=== PATIENT | female | born 1980 | race Caucasian/White ===

== ENCOUNTER 2018-02-09 00:35 | Inpatient (IN) | payer BC, OTHER ==
[2018-02-09] MEDS ORDERED: Sodium Chloride 0.9% 10 ML Syringe FLUSH PRN (00:49)
[2018-02-09] MEDS ORDERED: Ondansetron 4 MG/2 ML SDV IVPUSH ONE (00:50)
--- NOTE | 2018-02-09 00:56 | EDM.PDOC ---
ED HPI GENERAL MEDICAL PROBLEM - General Chief Complaint: Abdominal Pain Stated Complaint: DIZZY Time Seen by Provider: 02/09/18 00:45 Source of Information: Reports: Patient, Family History Limitations: Reports: No Limitations - History of Present Illness INITIAL COMMENTS - FREE TEXT/NARRATIVE: Nicol comes into [facility] ED this early am with progressive upper abdominal pain since 9 pm associated with multiple episodes of vomiting, and recent diarrhea over the past few hoiurs. There is also some chronic LLQ pain associated with a PMH of endometriosis. She is unaware of any known exposure, and denies fever, chills, sweats, BRB in the emesis or stools, voiding sxs, or back pain. She has tried no meds. Of interest is a diagnosis of C diff enterocolitis November 2016 , managed with Flagyl po and eventually Vancomycin. A subsequent GI workup including EGD and colonoscopy in May 2017 noted IBS without findings for C diff. Abdomen Pain Score (Numeric/FACES): 9 - Related Data Allergies Allergy/AdvReac Type Severity Reaction Status Date / Time venlafaxine HCl Allergy Disorientat Verified 09/06/13 14:35 [From Effexor] ion Home Meds: Home Meds Ibuprofen [Motrin] 800 mg PO QID PRN 09/06/13 [History] Ondansetron HCl [Zofran] 4 mg PO Q8H PRN #10 ml 09/06/13 [Rx] Simvastatin 10 mg PO DAILY 09/06/13 [History] Ascorbate Calcium [Vitamin C] 500 mg PO DAILY 02/09/18 [History] Bacillus Coagulans [Digestive Advantage] 1 each PO DAILY 02/09/18 [History] Cetirizine [ZyrTEC] 10 mg PO BEDTIME 02/09/18 [History] Cholecalciferol (Vitamin D3) [Vitamin D3] 3,000 unit PO DAILY 02/09/18 [History] Lansoprazole [Prevacid] 30 mg DAILY 02/09/18 [History] Levonorgestrel-Ethin Estradiol [Falmina-28 Tablet] 1 tab DAILY 02/09/18 [History ] Multivitamin [Multivitamins] 1 each PO DAILY 02/09/18 [History] [place]-3 Fatty Acids/Fish Oil [Fish Oil 1,200 mg Softgel] 1 cap DAILY 02/09/18 [ History] PARoxetine HCl [Paroxetine Cr] 25 mg BEDTIME 02/09/18 [History] Vitamin B Complex with C [Super B Complex With C] 1 cap PO DAILY 02/09/18 [ History] Past Medical History Cardiovascular History: Reports: High Cholesterol Gastrointestinal History: Reports: GERD, Irritable Bowel Syndrome [employer] History: Reports: Endometriosis Social & Family History - Tobacco Use Years of Tobacco use: 5 Used Tobacco, but Quit: Yes Month/Year Tobacco Last Used: February 2013 ED ROS GENERAL - Review of Systems Review Of Systems: See Below Constitutional: Reports: Malaise, Decreased Appetite HEENT: Reports: No Symptoms Respiratory: Reports: No Symptoms Cardiovascular: Reports: No Symptoms Endocrine: Reports: No Symptoms GI/Abdominal: Reports: Abdominal Pain, Diarrhea, Decreased Appetite, Nausea, Vomiting : Reports: No Symptoms Musculoskeletal: Reports: No Symptoms Skin: Reports: No Symptoms Neurological: Reports: Headache Psychiatric: Reports: No Symptoms Hematologic/Lymphatic: Reports: No Symptoms Immunologic: Reports: No Symptoms ED EXAM, GI/ABD - Physical Exam Exam: See Below Exam Limited By: Physical Impairment General Appearance: Alert, WD/WN, Moderate Distress Eyes: Bilateral: Normal Appearance, EOMI Ears: Normal External Exam Nose: Normal Inspection Throat/Mouth: Normal Inspection, Normal Lips, Normal Teeth, Normal Gums, Normal Oropharynx, Normal Voice Head: Normocephalic Neck: Normal Inspection, Supple, Non-Tender Respiratory/Chest: Lungs Clear, Normal Breath Sounds, Chest Non-Tender Cardiovascular: Normal Peripheral Pulses, Regular Rate, Rhythm, No Edema, No JVD , No Murmur GI/Abdominal Exam: Soft, No Organomegaly, No Distention, No Mass, Guarding ( epigastric), Tender (epigastric) (Female) Exam: Deferred Rectal (Female) Exam: Deferred Back Exam: Normal Inspection Extremities: Normal Inspection, Normal Range of Motion Neurological: Alert, Oriented, CN II-XII Intact, Normal Cognition, No Motor/ Sensory Deficits Psychiatric: Normal Affect Skin Exam: Warm, Dry, Intact, Normal Color Lymphatic: No Adenopathy Course - Vital Signs Text/Narrative:: Following assessment at the [facility] ED, an IV was inserted into the LUE, and Nicol was administered 2L of NS, Zofran 8mg IV,and Toradol 30 mg IV with marked improvement in abdominal sxs. Subsequent labs noted: CBC noting Hgb 16.5 gm, WBC 21,600 w L shift, Plts 276,000; Na 135, K 5.8, BUN 13, Cr 1.7. Subsequent evaluation suggestive of intra-abdominal sepsis of GI tract. BCs x 2 obtained, fluid resuscitation continued, ZoSyn and Vancomycin administered, and Abd- Pelvic CT wo contrast ordered in advance of surgical consultation and admission to ICU. A Gracia cath was inserted to monitor urine outputs. At time of transfer , VSS w BP 113/68, VR 100. Patient and spouse informed of medical concerns. Last Recorded V/S: Last Vital Signs Temp 37.3 C 02/09/18 03:38 Pulse 78 02/09/18 00:35 Resp 18 02/09/18 03:38 BP 113/68 02/09/18 03:38 Pulse Ox 100 02/09/18 03:38 - Orders/Labs/Meds Orders: Active Orders 24 hr Category Date Time Status Patient Status Manage Transfer [TRANSFER] Routine ADT 02/09/18 04:04 Ordered Insert Gracia Catheter [Insert Urinary Catheter] [OM.PC] Care 02/09/18 04:00 Ordered Q24H Urinary Catheter Assessment [RC] QSHIFT Care 02/09/18 03:50 Active Abdomen Pelvis wo Cont [CT] Stat Exams 02/09/18 04:03 Ordered Chest 1V Frontal [CR] Stat Exams 02/09/18 03:30 Ordered CDIFF TOXIN A+B GROUP [OP] Stat Lab 02/09/18 04:03 Ordered CULTURE BLOOD [BC] Urgent Lab 02/09/18 02:55 Received CULTURE BLOOD [BC] Urgent Lab 02/09/18 03:03 Received UA W/MICROSCOPIC [URIN] Stat Lab 02/09/18 03:03 Ordered Diatrizoate Anabel/Diatrizoate Na [Gastrografin 37%] Med 02/09/18 04:00 Active 30 ml PO . DIRECTED Piperacillin/Tazobactam [Zosyn] 3.375 gm Med 02/09/18 03:45 Active Sodium Chloride 0.9% [Normal Saline] 50 ml IV Q6H Sodium Chloride 0.9% [Normal Saline] 1,000 ml Med 02/09/18 01:00 Active IV ASDIRECTED Sodium Chloride 0.9% [Normal Saline] 1,000 ml Med 02/09/18 03:15 Active IV ASDIRECTED Sodium Chloride 0.9% [Normal Saline] 2,000 ml Med 02/09/18 04:00 Active IV ASDIRECTED Sodium Chloride 0.9% [Saline Flush] Med 02/09/18 00:49 Active 10 ml FLUSH ASDIRECTED PRN Vancomycin 1,000 mg Med 02/09/18 04:00 Active Sodium Chloride 0.9% [Normal Saline] 250 ml IV Q12H Blood Culture x2 Reflex Set [OM.PC] Urgent Oth 02/09/18 02:45 Ordered Peripheral IV Insertion Adult [OM.PC] Routine Oth 02/09/18 00:49 Ordered Medication Orders Diatrizoate Meglum/Diatrizoate Sod (Gastrografin 37%) 30 ml PO . DIRECTED [facility] Sodium Chloride (Normal Saline) 1,000 mls @ 999 mls/hr IV ASDIRECTED JOHN Last Admin: 02/09/18 01:00 Dose: 999 mls/hr Sodium Chloride (Normal Saline) 1,000 mls @ 999 mls/hr IV ASDIRECTED JOHN Last Admin: 02/09/18 02:02 Dose: 999 mls/hr Piperacillin Sod/Tazobactam (Sod 3.375 gm/ Sodium Chloride) 50 mls @ 100 mls/ hr IV Q6H JOHN Vancomycin HCl 1,000 mg/ (Sodium Chloride) 250 mls @ 167 mls/hr IV Q12H JOHN Sodium Chloride (Normal Saline) 2,000 mls @ 500 mls/hr IV ASDIRECTED JOHN Last Admin: 02/09/18 03:50 Dose: 500 mls/hr Sodium Chloride (Saline Flush) 10 ml FLUSH ASDIRECTED PRN PRN Reason: Keep Vein Open Labs: Laboratory Tests 02/09/18 02/09/18 02/09/18 Range/Units 01:05 01:05 02:55 WBC 21.6 H 20.9 H (4.5-12.0) X10-3/uL RBC 5.30 H 4.91 (3.23-5.20) x10(6)uL Hgb 16.5 H 15.1 (11.5-15.5) g/dL Hct 49.1 45.5 (30.0-51.3) % MCV 92.6 92.6 (80-96) fL MCH 31.2 30.7 (27.7-33.6) pg MCHC 33.7 33.2 (32.2-35.4) g/dL RDW 12.3 12.5 (11.5-15.5) % Plt Count 276 196 (125-369) X10(3)uL MPV 9.2 9.3 (7.4-10.4) fL Add Manual Diff Yes Yes Neutrophils % (Manual) 85 H 85 H (46-82) % Band Neutrophils % 3 3 (0-6) % Lymphocytes % (Manual) 8 L 8 L (13-37) % Monocytes % (Manual) 4 3 L (4-12) % Eosinophils % (Manual) 1 (0-5) % Sodium 135 (135-145) mmol/L Potassium 5.8 H (3.5-5.3) mmol/L Chloride 98 L (100-110) mmol/L Carbon Dioxide 23 (21-32) mmol/L BUN 13 (7-18) mg/dL Creatinine 1.7 H (0.55-1.02) mg/dL Est Cr Clr Drug Dosing 35.14 mL/min Estimated GFR (MDRD) 33 L (>60) BUN/Creatinine Ratio 7.6 L (9-20) Glucose 178 H (80-116) mg/dL Lactic Acid (0.4-2.2) mmol/L Calcium 9.9 (8.6-10.2) mg/dL Amylase (25-115) U/L Urine Color (YELLOW) Urine Appearance (CLEAR) Urine pH (5.0-6.5) Ur Specific [place] (1.010-1.025) Urine Protein (NEGATIVE) mg/dL Urine Glucose (UA) (NEGATIVE) mg/dL Urine Ketones (NEGATIVE) mg/dL Urine Occult Blood (NEGATIVE) Urine Nitrite (NEGATIVE) Urine Bilirubin (NEGATIVE) Urine Urobilinogen (NEGATIVE) mg/dL Ur Leukocyte Esterase (NEGATIVE) Urine RBC (0) Urine WBC (0) Ur Squamous Epith Cells (NS,R,O) Urine Bacteria (NS) Hyaline Casts (NS) Fine Granular Casts (NS) Urine Mucus (NS) 02/09/18 02/09/18 02/09/18 Range/Units 02:55 02:55 03:03 WBC (4.5-12.0) X10-3/uL RBC (3.23-5.20) x10(6)uL Hgb (11.5-15.5) g/dL Hct (30.0-51.3) % MCV (80-96) fL MCH (27.7-33.6) pg MCHC (32.2-35.4) g/dL RDW (11.5-15.5) % Plt Count (125-369) X10(3)uL MPV (7.4-10.4) fL Add Manual Diff Neutrophils % (Manual) (46-82) % Band Neutrophils % (0-6) % Lymphocytes % (Manual) (13-37) % Monocytes % (Manual) (4-12) % Eosinophils % (Manual) (0-5) % Sodium 141 (135-145) mmol/L Potassium 4.4 D (3.5-5.3) mmol/L Chloride 104 D (100-110) mmol/L Carbon Dioxide 21 (21-32) mmol/L BUN 13 (7-18) mg/dL Creatinine 1.3 H (0.55-1.02) mg/dL Est Cr Clr Drug Dosing 45.95 mL/min Estimated GFR (MDRD) 46 L (>60) BUN/Creatinine Ratio 10.0 (9-20) Glucose 111 (80-116) mg/dL Lactic Acid 2.3 H (0.4-2.2) mmol/L Calcium 8.5 L (8.6-10.2) mg/dL Amylase 56 (25-115) U/L Urine Color Yellow (YELLOW) Urine Appearance Cloudy (CLEAR) Urine pH 6.0 (5.0-6.5) Ur Specific [place] 1.015 (1.010-1.025) Urine Protein 30 H (NEGATIVE) mg/dL Urine Glucose (UA) Normal (NEGATIVE) mg/dL Urine Ketones Negative (NEGATIVE) mg/dL Urine Occult Blood Moderate H (NEGATIVE) Urine Nitrite Negative (NEGATIVE) Urine Bilirubin Small H (NEGATIVE) Urine Urobilinogen 1 H (NEGATIVE) mg/dL Ur Leukocyte Esterase Moderate H (NEGATIVE) Urine RBC 5-10 (0) Urine WBC 5-10 (0) Ur Squamous Epith Cells Many H (NS,R,O) Urine Bacteria Few H (NS) Hyaline Casts Moderate H (NS) Fine Granular Casts Occasional H (NS) Urine Mucus Many H (NS) Meds: Medications Generic Name Dose Route Start Last Admin Trade Name Constantino PRN Reason Stop Dose Admin Diatrizoate Meglum/Diatrizoate Sod 30 ml 02/09/18 04:00 Gastrografin 37% PO . DIRECTED JOHN Sodium Chloride 1,000 mls @ 999 mls/hr 02/09/18 01:00 02/09/18 01:00 Normal Saline IV 999 mls/hr ASDIRECTED JOHN Administration Sodium Chloride 1,000 mls @ 999 mls/hr 02/09/18 03:15 02/09/18 02:02 Normal Saline IV 999 mls/hr ASDIRECTED JOHN Administration Piperacillin Sod/Tazobactam 50 mls @ 100 mls/hr 02/09/18 03:45 Sod 3.375 gm/ Sodium Chloride IV Q6H JOHN Vancomycin HCl 1,000 mg/ 250 mls @ 167 mls/hr 02/09/18 04:00 Sodium Chloride IV Q12H JOHN Sodium Chloride 2,000 mls @ 500 mls/hr 02/09/18 04:00 02/09/18 03:50 Normal Saline IV 500 mls/hr ASDIRECTED JOHN Administration Sodium Chloride 10 ml 02/09/18 00:49 Saline Flush FLUSH ASDIRECTED PRN Keep Vein Open Discontinued Medications Generic Name Dose Route Start Last Admin Trade Name Constantino PRN Reason Stop Dose Admin Dextrose/Lactated Ringer's 1,000 mls @ 75 mls/hr 02/09/18 03:06 02/09/18 03: 06 Dextrose 5%-Lactated Ringers IV 75 mls/hr ASDIRECTED JOHN Administration Promethazine HCl 50 mg/ Sodium 52 mls @ 200 mls/hr 02/09/18 03:42 02/09/18 03 :53 Chloride IV 02/09/18 03:57 200 mls/hr ONETIME ONE Administration Dextrose/Lactated Ringer's 2,000 mls @ 500 mls/hr 02/09/18 03:45 Dextrose 5%-Lactated Ringers IV ASDIRECTED JOHN Iopamidol 75 ml 02/09/18 03:54 02/09/18 04:06 Isovue-370 (76%) IV 02/09/18 03:55 Not Given ONETIME ONE Ketorolac Tromethamine 30 mg 02/09/18 00:58 02/09/18 01:14 Toradol IVPUSH 02/09/18 00:59 30 mg ONETIME ONE Administration Ondansetron HCl 8 mg 02/09/18 00:50 02/09/18 01:09 Zofran IVPUSH 02/09/18 00:51 8 mg ONETIME ONE Administration Departure - Departure Time of Disposition: 04:14 Disposition: Admitted As Inpatient 64 Condition: Poor Clinical Impression: Sepsis Qualifiers: Sepsis type: sepsis due to unspecified organism Qualified Code(s): A41.9 - Sepsis, unspecified organism - Discharge Information Referrals: PCP,None [Primary Care Provider] - Forms: ED Department Discharge - Problem List & Annotations (1) Sepsis SNOMED Code(s): 31791509 Code(s): A41.9 - SEPSIS, UNSPECIFIED ORGANISM Status: Acute Current Visit : Yes Annotation/Comment:: Proceed with admission to ICU, diagnostic imaging, and surgical consult this am. Qualifiers: Sepsis type: sepsis due to unspecified organism Qualified Code(s): A41.9 - Sepsis, unspecified organism - Problem List Review Problem List Initiated/Reviewed/Updated: Yes - My Orders Last 24 Hours: My Active Orders 02/09/18 00:49 Sodium Chloride 0.9% [Saline Flush] 10 ml FLUSH ASDIRECTED PRN Peripheral IV Insertion Adult [OM.PC] Routine 02/09/18 01:00 Sodium Chloride 0.9% [Normal Saline] 1,000 ml IV ASDIRECTED 02/09/18 02:45 Blood Culture x2 Reflex Set [OM.PC] Urgent 02/09/18 02:55 CULTURE BLOOD [BC] Urgent 02/09/18 03:03 CULTURE BLOOD [BC] Urgent UA W/MICROSCOPIC [URIN] Stat 02/09/18 03:15 Sodium Chloride 0.9% [Normal Saline] 1,000 ml IV ASDIRECTED 02/09/18 03:30 Chest 1V Frontal [CR] Stat 02/09/18 03:45 Piperacillin/Tazobactam [Zosyn] 3.375 gm Sodium Chloride 0.9% [Normal Saline] 50 ml IV Q6H 02/09/18 03:50 Urinary Catheter Assessment [RC] QSHIFT 02/09/18 04:00 Insert Gracia Catheter [Insert Urinary Catheter] [OM.PC] Q24H Diatrizoate Anabel/Diatrizoate Na [Gastrografin 37%] 30 ml PO . DIRECTED Sodium Chloride 0.9% [Normal Saline] 2,000 ml IV ASDIRECTED Vancomycin 1,000 mg Sodium Chloride 0.9% [Normal Saline] 250 ml IV Q12H 02/09/18 04:03 Abdomen Pelvis wo Cont [CT] Stat CDIFF TOXIN A+B GROUP [OP] Stat 02/09/18 04:04 Patient Status Manage Transfer [TRANSFER] Routine - Assessment/Plan Last 24 Hours: My Active Orders 02/09/18 00:49 Sodium Chloride 0.9% [Saline Flush] 10 ml FLUSH ASDIRECTED PRN Peripheral IV Insertion Adult [OM.PC] Routine 02/09/18 01:00 Sodium Chloride 0.9% [Normal Saline] 1,000 ml IV ASDIRECTED 02/09/18 02:45 Blood Culture x2 Reflex Set [OM.PC] Urgent 02/09/18 02:55 CULTURE BLOOD [BC] Urgent 02/09/18 03:03 CULTURE BLOOD [BC] Urgent UA W/MICROSCOPIC [URIN] Stat 02/09/18 03:15 Sodium Chloride 0.9% [Normal Saline] 1,000 ml IV ASDIRECTED 02/09/18 03:30 Chest 1V Frontal [CR] Stat 02/09/18 03:45 Piperacillin/Tazobactam [Zosyn] 3.375 gm Sodium Chloride 0.9% [Normal Saline] 50 ml IV Q6H 02/09/18 03:50 Urinary Catheter Assessment [RC] QSHIFT 02/09/18 04:00 Insert Gracia Catheter [Insert Urinary Catheter] [OM.PC] Q24H Diatrizoate Anabel/Diatrizoate Na [Gastrografin 37%] 30 ml PO . DIRECTED Sodium Chloride 0.9% [Normal Saline] 2,000 ml IV ASDIRECTED Vancomycin 1,000 mg Sodium Chloride 0.9% [Normal Saline] 250 ml IV Q12H 02/09/18 04:03 Abdomen Pelvis wo Cont [CT] Stat CDIFF TOXIN A+B GROUP [OP] Stat 02/09/18 04:04 Patient Status Manage Transfer [TRANSFER] Routine Plan: Hospitalist and Surgery to assume care in the am.
[2018-02-09] MEDS ORDERED: Ketorolac 30 MG/ML SDV IVPUSH ONE (00:58)
[2018-02-09] MEDS ORDERED: Sodium Chloride 0.9% 1,000 ML IV SCH ×3 (01:00→20:15)
[2018-02-09] MEDS ORDERED: Dextrose 5%-Lactated Ringers 1,000 ML IV SCH (03:06)
[2018-02-09] MEDS ORDERED: Dextrose 5%-Lact Ringers w/KCl 1,000 ML IV SCH (03:15)
[2018-02-09] MEDS ORDERED: Promethazine 50 MG in Sodium Chloride 0.9% 50 ML IV ONE (03:42)
[2018-02-09] MEDS ORDERED: Iopamidol 755 Mg/ML 75 ML Bottle IV ONE (03:54)
[2018-02-09] MEDS ORDERED: Diatrizoate Meglumine/Diatrizoate Sodium 37% 30 ML Bottle PO SCH (04:00)
[2018-02-09] MEDS ORDERED: Sodium Chloride 0.9% 2,000 ML IV SCH (04:00)
[2018-02-09] MEDS: Piperacillin/Tazobactam 3.375 GM in Sodium Chloride 0.9% 50 ML IV SCH ×2 (04:17→10:27)
[2018-02-09] MEDS ORDERED: Vancomycin 1,000 MG SDV ONE (05:10)
--- NOTE | 2018-02-09 07:38 | PCM.HP ---
H&P History of Present Illness - General Date of Service: 02/09/18 Admit Problem/Dx: Admission Diagnosis/Problem Admission Diagnosis/Problem Sepsis Source of Information: Patient, Other (ER physician) History Limitations: Reports: No Limitations - History of Present Illness Initial Comments - Free Text/Narative: This is a 37-year-old female patient started having vomiting and diarrhea 9:00 last night. She has some upper abdominal pain and it got worse to the point where she started getting dizzy so she came to the ER. They hydrated her and she had an elevated white count of 20,000. Repeated still 21,000. And put in the hospital for possible sepsis. She states she's had 2 relatives that had vomiting recently that she's been exposed to. She has a history of C. difficile from antibiotics. She has some diarrhea and abdominal pain and was worked up last year in the summer with a colonoscopy and she had no diverticulosis. She denies fevers, runny nose, sore throat, cough. The ER doctor said the CT scan was nonspecific. Abdomen Pain Score (Numeric/FACES): 2 - Related Data Allergies/Adverse Reactions: Allergies Allergy/AdvReac Type Severity Reaction Status Date / Time venlafaxine HCl Allergy Disorientat Verified 09/06/13 14:35 [From Effexor] ion Home Medications: Home Meds Ibuprofen [Motrin] 800 mg PO QID PRN 09/06/13 [History] Ondansetron HCl [Zofran] 4 mg PO Q8H PRN #10 ml 09/06/13 [Rx] Simvastatin 10 mg PO DAILY 09/06/13 [History] Ascorbate Calcium [Vitamin C] 500 mg PO DAILY 02/09/18 [History] Bacillus Coagulans [Digestive Advantage] 1 each PO DAILY 02/09/18 [History] Cetirizine [ZyrTEC] 10 mg PO BEDTIME 02/09/18 [History] Cholecalciferol (Vitamin D3) [Vitamin D3] 3,000 unit PO DAILY 02/09/18 [History] Lansoprazole [Prevacid] 30 mg DAILY 02/09/18 [History] Levonorgestrel-Ethin Estradiol [Falmina-28 Tablet] 1 tab DAILY 02/09/18 [History ] Multivitamin [Multivitamins] 1 each PO DAILY 02/09/18 [History] [place]-3 Fatty Acids/Fish Oil [Fish Oil 1,200 mg Softgel] 1 cap DAILY 02/09/18 [ History] PARoxetine HCl [Paroxetine Cr] 25 mg BEDTIME 02/09/18 [History] Vitamin B Complex with C [Super B Complex With C] 1 cap PO DAILY 02/09/18 [ History] Past Medical History Cardiovascular History: Reports: High Cholesterol Gastrointestinal History: Reports: GERD, Irritable Bowel Syndrome Other Gastrointestinal History: c diff, [employer] History: Reports: Endometriosis, Other (See Below) Other OB/BYN History: surgery for endometriosis Musculoskeletal History: Reports: Fracture Other Musculoskeletal History: hx fx L 5th digit fx, Neurological History: Reports: Migraines Psychiatric History: Reports: Anxiety, Depression Endocrine/Metabolic History: Reports: Hypothyroidism Dermatologic History: Reports: Psoriasis - Infectious Disease History Infectious Disease History: Reports: C-Difficile, Chicken Pox - Past Surgical History Head Surgeries/Procedures: Reports: None HEENT Surgical History: Reports: Oral Surgery GI Surgical History: Reports: Colonoscopy, EGD Social & Family History - Family History Family Medical History: Noncontributory - Tobacco Use Smoking Status *Q: Current Every Day Smoker Years of Tobacco use: 23 Packs/Tins Daily: 0 Used Tobacco, but Quit: Yes Month/Year Tobacco Last Used: February 2013 Tobacco Use Comment: PLANNING TO QUIT AT END OF MONTH. Second Hand Smoke Exposure: No - Caffeine Use Caffeine Use: Reports: Coffee Other Caffeine Use: 3 CUPS DAILY - Recreational Drug Use Recreational Drug Use: No H&P Review of Systems - Review of Systems: Review Of Systems: See Below General: Reports: Weakness HEENT: Reports: No Symptoms Pulmonary: Reports: No Symptoms Cardiovascular: Reports: No Symptoms Gastrointestinal: Reports: Abdominal Pain, Diarrhea, Vomiting. Denies: Hematemesis, Hematochezia, Melena Genitourinary: Reports: No Symptoms Musculoskeletal: Reports: No Symptoms Skin: Reports: No Symptoms Psychiatric: Reports: No Symptoms Neurological: Reports: No Symptoms Hematologic/Lymphatic: Reports: No Symptoms Immunologic: Reports: No Symptoms Exam - Exam Exam: See Below - Vital Signs Vital Signs: Last Vital Signs Temp 98 F 02/09/18 04:30 Pulse 72 02/09/18 04:30 Resp 16 02/09/18 04:30 BP 108/62 02/09/18 04:30 Pulse Ox 98 02/09/18 04:30 Weight: 161 lb - Exam General: Alert, Oriented, Cooperative HEENT: PERRLA, Mucosa Moist & [place], Posterior Pharynx Clear, TMs Clear Neck: Supple, Trachea Midline Lungs: Clear to Auscultation, Normal Respiratory Effort. No: Crackles, Rales, Rhonchi Cardiovascular: Regular Rate, Regular Rhythm, Normal S1, Normal S2. No: Tachycardia, Systolic Murmur, Diastolic Murmur GI/Abdominal Exam: Soft, No Organomegaly, No Distention, No Mass, Tender ( Minimally diffuse.), Other (Hypoactive bowel sounds). No: Guarding, Rigid, Rebound Extremities: Normal Inspection, Non-Tender, No Pedal Edema Skin: Warm, Dry, Intact Neuro Extensive - Mental Status: Alert, Oriented x3, Normal Cognition Psychiatric: Alert - Patient Data Lab Results Last 24 hrs: Laboratory Results - last 24 hr 02/09/18 02/09/18 02/09/18 Range/Units 01:05 01:05 02:55 WBC 21.6 H 20.9 H (4.5-12.0) X10-3/uL RBC 5.30 H 4.91 (3.23-5.20) x10(6)uL Hgb 16.5 H 15.1 (11.5-15.5) g/dL Hct 49.1 45.5 (30.0-51.3) % MCV 92.6 92.6 (80-96) fL MCH 31.2 30.7 (27.7-33.6) pg MCHC 33.7 33.2 (32.2-35.4) g/dL RDW 12.3 12.5 (11.5-15.5) % Plt Count 276 196 (125-369) X10(3)uL MPV 9.2 9.3 (7.4-10.4) fL Add Manual Diff Yes Yes Neutrophils % (Manual) 85 H 85 H (46-82) % Band Neutrophils % 3 3 (0-6) % Lymphocytes % (Manual) 8 L 8 L (13-37) % Monocytes % (Manual) 4 3 L (4-12) % Eosinophils % (Manual) 1 (0-5) % Sodium 135 (135-145) mmol/L Potassium 5.8 H (3.5-5.3) mmol/L Chloride 98 L (100-110) mmol/L Carbon Dioxide 23 (21-32) mmol/L BUN 13 (7-18) mg/dL Creatinine 1.7 H (0.55-1.02) mg/dL Est Cr Clr Drug Dosing 35.14 mL/min Estimated GFR (MDRD) 33 L (>60) BUN/Creatinine Ratio 7.6 L (9-20) Glucose 178 H (80-116) mg/dL Lactic Acid (0.4-2.2) mmol/L Calcium 9.9 (8.6-10.2) mg/dL Amylase (25-115) U/L Urine Color (YELLOW) Urine Appearance (CLEAR) Urine pH (5.0-6.5) Ur Specific [place] (1.010-1.025) Urine Protein (NEGATIVE) mg/dL Urine Glucose (UA) (NEGATIVE) mg/dL Urine Ketones (NEGATIVE) mg/dL Urine Occult Blood (NEGATIVE) Urine Nitrite (NEGATIVE) Urine Bilirubin (NEGATIVE) Urine Urobilinogen (NEGATIVE) mg/dL Ur Leukocyte Esterase (NEGATIVE) Urine RBC (0) Urine WBC (0) Ur Squamous Epith Cells (NS,R,O) Urine Bacteria (NS) Hyaline Casts (NS) Fine Granular Casts (NS) Urine Mucus (NS) 02/09/18 02/09/18 02/09/18 Range/Units 02:55 02:55 03:03 WBC (4.5-12.0) X10-3/uL RBC (3.23-5.20) x10(6)uL Hgb (11.5-15.5) g/dL Hct (30.0-51.3) % MCV (80-96) fL MCH (27.7-33.6) pg MCHC (32.2-35.4) g/dL RDW (11.5-15.5) % Plt Count (125-369) X10(3)uL MPV (7.4-10.4) fL Add Manual Diff Neutrophils % (Manual) (46-82) % Band Neutrophils % (0-6) % Lymphocytes % (Manual) (13-37) % Monocytes % (Manual) (4-12) % Eosinophils % (Manual) (0-5) % Sodium 141 (135-145) mmol/L Potassium 4.4 D (3.5-5.3) mmol/L Chloride 104 D (100-110) mmol/L Carbon Dioxide 21 (21-32) mmol/L BUN 13 (7-18) mg/dL Creatinine 1.3 H (0.55-1.02) mg/dL Est Cr Clr Drug Dosing 45.95 mL/min Estimated GFR (MDRD) 46 L (>60) BUN/Creatinine Ratio 10.0 (9-20) Glucose 111 (80-116) mg/dL Lactic Acid 2.3 H (0.4-2.2) mmol/L Calcium 8.5 L (8.6-10.2) mg/dL Amylase 56 (25-115) U/L Urine Color Yellow (YELLOW) Urine Appearance Cloudy (CLEAR) Urine pH 6.0 (5.0-6.5) Ur Specific [place] 1.015 (1.010-1.025) Urine Protein 30 H (NEGATIVE) mg/dL Urine Glucose (UA) Normal (NEGATIVE) mg/dL Urine Ketones Negative (NEGATIVE) mg/dL Urine Occult Blood Moderate H (NEGATIVE) Urine Nitrite Negative (NEGATIVE) Urine Bilirubin Small H (NEGATIVE) Urine Urobilinogen 1 H (NEGATIVE) mg/dL Ur Leukocyte Esterase Moderate H (NEGATIVE) Urine RBC 5-10 (0) Urine WBC 5-10 (0) Ur Squamous Epith Cells Many H (NS,R,O) Urine Bacteria Few H (NS) Hyaline Casts Moderate H (NS) Fine Granular Casts Occasional H (NS) Urine Mucus Many H (NS) Result Diagrams: 02/09/18 02:55 02/09/18 02:55 - Problem List (1) Gastroenteritis SNOMED Code(s): 07518705 ICD Code: K52.9 - NONINFECTIVE GASTROENTERITIS AND COLITIS, UNSPECIFIED Status: Acute Current Visit: Yes (2) Dehydration SNOMED Code(s): 17705454 ICD Code: E86.0 - DEHYDRATION Status: Acute Current Visit: Yes Problem List Initiated/Reviewed/Updated: Yes Orders Last 24hrs: Active Orders 24 hr Category Date Time Status DC Gracia Catheter [Urinary Catheter Removal] [RC] Per Care 02/09/18 07:29 Ordered Unit Routine Insert Gracia Catheter [Insert Urinary Catheter] [OM.PC] Care 02/09/18 04:00 Ordered Q24H Up ad Radha [RC] ASDIRECTED Care 02/09/18 07:30 Ordered Clear Liquid Diet [DIET] Diet 02/09/18 Lunch Ordered Abdomen Pelvis wo Cont [CT] Stat Exams 02/09/18 04:03 Taken Chest 1V Frontal [CR] Stat Exams 02/09/18 03:30 Ordered CDIFF TOXIN A+B GROUP [OP] Stat Lab 02/09/18 04:03 Ordered CULTURE BLOOD [BC] Urgent Lab 02/09/18 02:55 Received CULTURE BLOOD [BC] Urgent Lab 02/09/18 03:03 Received Diatrizoate Anabel/Diatrizoate Na [Gastrografin 37%] Med 02/09/18 04:00 Active 30 ml PO . DIRECTED Piperacillin/Tazobactam [Zosyn] 3.375 gm Med 02/09/18 03:45 Active Sodium Chloride 0.9% [Normal Saline] 50 ml IV Q6H Sodium Chloride 0.9% [Normal Saline] 1,000 ml Med 02/09/18 01:00 Active IV ASDIRECTED Sodium Chloride 0.9% [Normal Saline] 1,000 ml Med 02/09/18 07:30 Ordered IV ASDIRECTED Sodium Chloride 0.9% [Saline Flush] Med 02/09/18 00:49 Active 10 ml FLUSH ASDIRECTED PRN Vancomycin 1,000 mg Med 02/09/18 04:00 Active Sodium Chloride 0.9% [Normal Saline] 250 ml IV Q12H Peripheral IV Insertion Adult [OM.PC] Routine Oth 02/09/18 00:49 Ordered Medication Orders Diatrizoate Meglum/Diatrizoate Sod (Gastrografin 37%) 30 ml PO . DIRECTED [facility] Last Admin: 02/09/18 05:38 Dose: 30 ml Sodium Chloride (Normal Saline) 1,000 mls @ 999 mls/hr IV ASDIRECTED [facility] Last Admin: 02/09/18 01:00 Dose: 999 mls/hr Piperacillin Sod/Tazobactam (Sod 3.375 gm/ Sodium Chloride) 50 mls @ 100 mls/ hr IV Q6H [facility] Last Admin: 02/09/18 04:17 Dose: 100 mls/hr Vancomycin HCl 1,000 mg/ (Sodium Chloride) 250 mls @ 167 mls/hr IV Q12H [facility] Last Admin: 02/09/18 05:22 Dose: 167 mls/hr Sodium Chloride (Normal Saline) 1,000 mls @ 250 mls/hr IV ASDIRECTED [facility] Sodium Chloride (Saline Flush) 10 ml FLUSH ASDIRECTED PRN PRN Reason: Keep Vein Open Assessment/Plan Comment:: 1. Admit to the ICU for close monitoring. 2. IV fluids aggressively with normal saline. 3. The admitting doctor placed her on vancomycin and Zosyn I will continue that for now. 4. The ER doc told me talk to surgeon for [facility] who will see her this morning. 5. Clear liquid diet. 6. Control nausea with Zofran. 7. A Gracia was started and I will stop it. 8. Cardiac monitoring.
[2018-02-09] MEDS ORDERED: Ondansetron 4 MG/2 ML SDV IVPUSH PRN (07:57)
[2018-02-09] MEDS ORDERED: Ketorolac 30 MG/ML SDV IVPUSH PRN (08:02)
[2018-02-09] MEDS ORDERED: metroNIDAZOLE/Normal Saline 500 MG in Premix Bag 1 BAG IV SCH (10:00)
[2018-02-09] MEDS: Sodium Chloride 0.9% 1,000 ML IV SCH ×3 (10:04→18:36)
--- NOTE | 2018-02-09 10:58 | CR ---
INDICATION: Suspected sepsis. CHEST: A single AP upright view of the chest was obtained 02/09/2018 and revealed overlying EKG leads. The heart, mediastinum, and bony thorax were unremarkable. A definite active infiltrate or effusion was not identified. However, there is an area of increased density, having a somewhat nodular appearance, in the suprahilar area on the left. Most likely this represents a scar. If no old chest films are available for comparison, follow-up may be warranted. IMPRESSION: No definite acute process. There is an appearance of a scar or artifact in the suprahilar area on the left. Comparison with old studies recommended for further evaluation. Repeat examination with PA and lateral views may also be helpful, initially. Depending upon results, additional examination could be obtained, especially if no old films are available for comparison. TEOFILOD
--- NOTE | 2018-02-09 12:37 | CONS ---
DATE OF CONSULTATION: 02/09/2018 HISTORY OF PRESENT ILLNESS: This 37-year-old female was seen in consultation for evaluation of abdominal pain, vomiting, and diarrhea. The patient became severely ill last night and presented to the emergency room earlier this morning. WBC was elevated at 20,000, and creatinine was elevated. She does have a history of C diff colitis last summer. In the emergency room, CT scan was ordered, and no source of abdominal infection was noted. She does have a history of possible flu exposure with a 4-year-old nephew, who was staying with her a few days ago, who was vomiting. In the emergency room, the patient was rehydrated, and creatinine improved from 1.7 to 1.3. Potassium was also initially elevated at 5.8, and repeat was improved at 4.4. Initial lactate was also mildly elevated at 2.3. Since admission, she is resting comfortably in the ICU. Pain is improved. She is still having some diarrhea. C diff is pending. Nausea is improved. PAST MEDICAL HISTORY: No previous major abdominal surgeries other than surgery for endometriosis. PHYSICAL EXAMINATION: GENERAL: A pleasant lady, resting comfortably. She is accompanied by her . VITAL SIGNS: Reviewed and within normal limits. ABDOMEN: Completely soft at this point. She does not have any focal tenderness. There are no masses or hernias palpable. ASSESSMENT: 1. Abdominal pain, nausea, and vomiting. 2. Dehydration. PLAN: The patient seems to be feeling better at this time with IV hydration. I spoke with Dr. Kevin and will stop the IV Zosyn and vancomycin. We will consider starting IV Flagyl until the C diff returns. No surgical issues are evident at this time. /[id number] NOEMY/FABIAN
[2018-02-09] MEDS ORDERED: Ondansetron 4 MG Tab.DIS PO PRN (17:34)
[2018-02-09] MEDS ORDERED: LANSOPRAZOLE 30 MG PO SCH (21:00)
[2018-02-09] MEDS ORDERED: Cetirizine 10 MG Tab PO SCH (21:00)
[2018-02-09] MEDS ORDERED: Simvastatin 10 MG Tab PO SCH (21:00)
[2018-02-09] MEDS ORDERED: Vancomycin 125 MG/5 ML ML Oral Solution PO SCH (21:00)
[2018-02-09] MEDS ORDERED: PAROXETINE 25 MG PO SCH (21:00)
[2018-02-09] MEDS: VANCOMYCIN 125 MG PO SCH (21:16)
--- NOTE | 2018-02-10 08:10 | PCM.PN ---
- General Info Date of Service: 02/10/18 Admission Dx/Problem (Free Text): Patient says she's feeling much better. No fevers, chills, nausea, vomiting or abdominal pain. Stool is now starting to form. No blood in the stool. - Patient Data Vitals - Most Recent: Last Vital Signs Temp 98.2 F 02/10/18 03:55 Pulse 76 02/10/18 03:55 Resp 18 02/10/18 03:55 BP 103/63 02/10/18 03:55 Pulse Ox 97 02/10/18 03:55 Weight - Most Recent: 161 lb I&O - Last 24 Hours: Intake & Output 02/09/18 02/10/18 02/10/18 22:59 06:59 14:59 Intake Total 1727 912 Output Total 1912 4750 Balance -548 738 Lab Results Last 24 Hours: Laboratory Results - last 24 hr 02/09/18 02/09/18 Range/Units 16:08 16:08 WBC 7.9 (4.5-12.0) X10-3/uL RBC 3.94 (3.23-5.20) x10(6)uL Hgb 12.3 (11.5-15.5) g/dL Hct 36.5 (30.0-51.3) % MCV 92.6 (80-96) fL MCH 31.1 (27.7-33.6) pg MCHC 33.6 (32.2-35.4) g/dL RDW 12.3 (11.5-15.5) % Plt Count 182 (125-369) X10(3)uL MPV 9.1 (7.4-10.4) fL Neut % (Auto) 78.3 (46-82) % Lymph % (Auto) 16.6 (13-37) % [place] % (Auto) 3.9 L (4-12) % Eos % (Auto) 1 (1.0-5.0) % Baso % (Auto) 0 (0-2) % Neut # (Auto) 6.2 (1.6-8.3) # Lymph # (Auto) 1.3 (0.6-5.0) # [place] # (Auto) 0.3 (0.0-1.3) # Eos # (Auto) 0.1 (0.0-0.8) # Baso # (Auto) 0.0 (0.0-0.2) # Sodium 141 (135-145) mmol/L Potassium 3.8 (3.5-5.3) mmol/L Chloride 109 D (100-110) mmol/L Carbon Dioxide 21 (21-32) mmol/L BUN 8 (7-18) mg/dL Creatinine 0.8 (0.55-1.02) mg/dL Est Cr Clr Drug Dosing 74.67 mL/min Estimated GFR (MDRD) > 60 (>60) BUN/Creatinine Ratio 10.0 (9-20) Glucose 103 (80-116) mg/dL Calcium 7.5 L (8.6-10.2) mg/dL Total Bilirubin 0.3 (0.1-1.3) mg/dL AST 14 (5-25) IU/L ALT 21 (12-36) U/L Alkaline Phosphatase 62 (56-112) IU/L Total Protein 5.8 L (6.0-8.0) g/dL Albumin 2.7 L (3.5-5.2) g/dL Globulin 3.1 g/dL Albumin/Globulin Ratio 0.9 Charlie Results Last 24 Hours: Microbiology 02/09/18 03:03 Aerobic Blood Culture - Preliminary Blood - Venous - Lab Draw NO GROWTH AFTER 1 DAY Anaerobic Blood Culture - Preliminary NO GROWTH AFTER 1 DAY 02/09/18 02:55 Aerobic Blood Culture - Preliminary Blood - Venous NO GROWTH AFTER 1 DAY Anaerobic Blood Culture - Preliminary NO GROWTH AFTER 1 DAY 02/09/18 04:03 Clostridium difficile Toxin A & B - Final Stool / Feces Positive C. Diff Toxin Med Orders - Current: Current Medications Ascorbic Acid (Vitamin C) 500 mg PO DAILY [facility] Cetirizine HCl (Zyrtec) 10 mg PO BEDTIME [facility] Last Admin: 02/09/18 21:16 Dose: 10 mg Cholecalciferol (Vitamin D3) 3,000 units PO DAILY [facility] Sodium Chloride (Normal Saline) 1,000 mls @ 75 mls/hr IV ASDIRECTED [facility] Last Admin: 02/10/18 06:13 Dose: 75 mls/hr Ketorolac Tromethamine (Toradol) 30 mg IVPUSH Q6H PRN PRN Reason: Pain Stop: 02/14/18 08:02 Multivitamins (Total B With C) 1 each PO DAILY JOHN Multivitamins/Minerals/Vitamin C (Tab-A-Manuel) 1 tab PO DAILY JOHN Non-Formulary Medication (Bacillus Coagulans [Digestive Advantage]) 1 each PO DAILY JOHN (Levonorgestrel- Ethin Estradiol [ Falmina-28 Tablet])* Pt Own Med* 1 tab PO BEDTIME [facility] Last Admin: 02/09/18 21:15 Dose: 1 tab Non-Formulary Medication ([place]-3 Fatty Acids/Fish Oil [Fish Oil 1,200 Mg Softgel]) 1 cap PO DAILY JOHN Ondansetron HCl (Zofran) 4 mg IVPUSH Q6H PRN PRN Reason: Nausea/Vomiting Ondansetron HCl (Zofran Odt) 4 mg PO Q8H PRN PRN Reason: NAUSEA Paroxetine HCl (Paxil Cr) 25 mg PO BEDTIME [facility] Last Admin: 02/09/18 21:15 Dose: 25 mg Lansoprazole 30mg Cr (Caps*Pt Own Med*) 1 each PO DAILY@1730 [facility] Last Admin: 02/09/18 21:15 Dose: 1 each Vancomycin 125 Mg (Capsules*Pt Own Med*) 1 each PO QID [facility] Last Admin: 02/09/18 21:16 Dose: 1 each Simvastatin (Zocor) 10 mg PO BEDTIME [facility] Last Admin: 02/09/18 21:15 Dose: 10 mg Sodium Chloride (Saline Flush) 10 ml FLUSH ASDIRECTED PRN PRN Reason: Keep Vein Open Discontinued Medications Diatrizoate Meglum/Diatrizoate Sod (Gastrografin 37%) 30 ml PO . DIRECTED [facility] Last Admin: 02/09/18 05:38 Dose: 30 ml Sodium Chloride (Normal Saline) 1,000 mls @ 999 mls/hr IV ASDIRECTED [facility] Last Admin: 02/09/18 01:00 Dose: 999 mls/hr Sodium Chloride (Normal Saline) 1,000 mls @ 999 mls/hr IV ASDIRECTED [facility] Last Admin: 02/09/18 02:02 Dose: 999 mls/hr Dextrose/Lactated Ringer's (Dextrose 5%-Lactated Ringers) 1,000 mls @ 75 mls/ hr IV ASDIRECTED [facility] Last Admin: 02/09/18 03:06 Dose: 75 mls/hr Promethazine HCl 50 mg/ Sodium (Chloride) 52 mls @ 200 mls/hr IV ONETIME ONE Stop: 02/09/18 03:57 Last Admin: 02/09/18 03:53 Dose: 200 mls/hr Dextrose/Lactated Ringer's (Dextrose 5%-Lactated Ringers) 2,000 mls @ 500 mls/ hr IV ASDIRECTED [facility] Piperacillin Sod/Tazobactam (Sod 3.375 gm/ Sodium Chloride) 50 mls @ 100 mls/ hr IV Q6H [facility] Last Admin: 02/09/18 10:27 Dose: Not Given Vancomycin HCl 1,000 mg/ (Sodium Chloride) 250 mls @ 167 mls/hr IV Q12H [facility] Last Admin: 02/09/18 05:22 Dose: 167 mls/hr Sodium Chloride (Normal Saline) 2,000 mls @ 500 mls/hr IV ASDIRECTED [facility] Last Admin: 02/09/18 03:50 Dose: 500 mls/hr Sodium Chloride (Normal Saline) 1,000 mls @ 150 mls/hr IV ASDIRECTED [facility] Last Admin: 02/09/18 18:36 Dose: 150 mls/hr Metronidazole 500 mg/ Premix 100 mls @ 100 mls/hr IV Q8H [facility] Last Admin: 02/09/18 10:12 Dose: 100 mls/hr Iopamidol (Isovue-370 (76%)) 75 ml IV ONETIME ONE Stop: 02/09/18 03:55 Last Admin: 02/09/18 04:06 Dose: Not Given Ketorolac Tromethamine (Toradol) 30 mg IVPUSH ONETIME ONE Stop: 02/09/18 00:59 Last Admin: 02/09/18 01:14 Dose: 30 mg Ondansetron HCl (Zofran) 8 mg IVPUSH ONETIME ONE Stop: 02/09/18 00:51 Last Admin: 02/09/18 01:09 Dose: 8 mg Vancomycin HCl (Vancomycin) Confirm Administered Dose 1,000 mg .ROUTE .STK-MED ONE Stop: 02/09/18 05:11 Last Admin: 02/09/18 05:27 Dose: Not Given Vancomycin HCl (Vancocin 125 Mg/5 Ml Soln) 125 mg PO QID [facility] Last Admin: 02/10/18 07:35 Dose: Not Given - Exam General: Alert, Oriented, Severe Distress Lungs: Normal Respiratory Effort - Problem List & Annotations (1) Dehydration SNOMED Code(s): 00071701 Code(s): E86.0 - DEHYDRATION Status: Acute Current Visit: Yes (2) C. difficile diarrhea SNOMED Code(s): 9367039516041 Code(s): A04.72 - ENTEROCOLITIS D/T CLOSTRIDIUM DIFFICILE, NOT SPCF RECUR Status: Acute Current Visit: Yes - Problem List Review Problem List Initiated/Reviewed/Updated: Yes - My Orders Last 24 Hours: My Active Orders 02/09/18 07:30 Up ad Radha [RC] ASDIRECTED 02/09/18 07:53 Resuscitation Status Routine 02/09/18 07:57 Ondansetron [Zofran] 4 mg IVPUSH Q6H PRN 02/09/18 08:02 Ketorolac [Toradol] 30 mg IVPUSH Q6H PRN 02/09/18 17:08 Admission Status [Patient Status] [ADT] Routine 02/09/18 17:34 Ondansetron [Zofran ODT] 4 mg PO Q8H PRN 02/09/18 18:59 Communication Order [RC] ROUTINE 02/09/18 21:00 Cetirizine [ZyrTEC] 10 mg PO BEDTIME Levonorgestrel-Ethin Estradiol [Falmina-28 Tablet] 1 tab PO BEDTIME PARoxetine [Paxil CR] 25 mg PO BEDTIME Patient's Own Medication [Ptom] 1 each PO DAILY@1730 Simvastatin [Zocor] 10 mg PO BEDTIME 02/09/18 21:15 Patient's Own Medication [Ptom] 1 each PO QID 02/09/18 Dinner Regular Diet [DIET] 02/10/18 09:00 Ascorbic Acid [Vitamin C] 500 mg PO DAILY Bacillus Coagulans [Digestive Advantage] 1 each PO DAILY Cholecalciferol (Vitamin D3) [Vitamin D3] 3,000 units PO DAILY Multivitamins [Tab-A-Manuel] 1 tab PO DAILY [place]-3 Fatty Acids/Fish Oil [Fish Oil 1,200 mg Softgel] 1 cap PO DAILY Vitamin B Complex with C [Total B With C] 1 each PO DAILY - Plan Plan:: 1 discharge to home on vancomycin. 2. Off work or school until 02/15/18.
--- NOTE | 2018-02-10 08:18 | PCM.DCSUM1 ---
Discharge Summary - Hospital Course Free Text/Narrative:: Course-patient was placed in ICU with a diagnosis of sepsis initially by the ER doctor. She is given 2 L of normal saline fast then to 250 mL per hour. When I saw her in the morning she is feeling better but still having lots of stools. She is using Zofran for nausea. She has a history of C. difficile so that was checked and it was positive. She was initially started on Flagyl and Zosyn in the ER. I change her to oral vancomycin 125 by mouth 4 times a day. Patient did better so we'll advance her diet she was able tolerate it adequately. But the second day in the morning her stools are forming her belly pain was gone no fevers, chills, nausea or vomiting. We'll discharge to home on vancomycin 125 mg 4 times a day. Patient should consider go back to infectious disease because of recurrent C. difficile infections. Brief History: This is a 37-year-old female patient started having vomiting and diarrhea 9:00 last night. She has some upper abdominal pain and it got worse to the point where she started getting dizzy so she came to the ER. They hydrated her and she had an elevated white count of 20,000. Repeated still 21,000. And put in the hospital for possible sepsis. She states she's had 2 relatives that had vomiting recently that she's been exposed to. She has a history of C. difficile from antibiotics. She has some diarrhea and abdominal pain and was worked up last year in the summer with a colonoscopy and she had no diverticulosis. She denies fevers, runny nose, sore throat, cough. The ER doctor said the CT scan was nonspecific. - Discharge Data Discharge Date: 02/10/18 Discharge Disposition: Home, Self-Care 01 Condition: Good - Discharge Diagnosis/Problem(s) (1) Dehydration SNOMED Code(s): 35544242 ICD Code: E86.0 - DEHYDRATION Status: Acute Current Visit: Yes (2) C. difficile diarrhea SNOMED Code(s): 9364845163797 ICD Code: A04.72 - ENTEROCOLITIS D/T CLOSTRIDIUM DIFFICILE, NOT SPCF RECUR Status: Acute Current Visit: Yes - Patient Instructions Diet: Regular Diet as Tolerated Activity: As Tolerated Driving: May Drive Today Showering/Bathing: May Shower Notify Provider of: Fever, Increased Pain Other/Special Instructions: 1. Recheck with Nicole Amador in 1 week. - Discharge Plan Prescriptions/Med Rec: Vancomycin 125 mg PO Q6H #28 cap Home Medications: Home Meds Ibuprofen [Motrin] 800 mg PO QID PRN 09/06/13 [History] Ondansetron HCl [Zofran] 4 mg PO Q8H PRN #10 ml 09/06/13 [Rx] Simvastatin 10 mg PO DAILY 09/06/13 [History] Ascorbate Calcium [Vitamin C] 500 mg PO DAILY 02/09/18 [History] Bacillus Coagulans [Digestive Advantage] 1 each PO DAILY 02/09/18 [History] Cetirizine [ZyrTEC] 10 mg PO BEDTIME 02/09/18 [History] Cholecalciferol (Vitamin D3) [Vitamin D3] 3,000 unit PO DAILY 02/09/18 [History] Lansoprazole [Prevacid] 30 mg DAILY 02/09/18 [History] Levonorgestrel-Ethin Estradiol [Falmina-28 Tablet] 1 tab DAILY 02/09/18 [History ] Multivitamin [Multivitamins] 1 each PO DAILY 02/09/18 [History] [place]-3 Fatty Acids/Fish Oil [Fish Oil 1,200 mg Softgel] 1 cap DAILY 02/09/18 [ History] PARoxetine HCl [Paroxetine Cr] 25 mg BEDTIME 02/09/18 [History] Vitamin B Complex with C [Super B Complex With C] 1 cap PO DAILY 02/09/18 [ History] Vancomycin 125 mg PO Q6H #28 cap 02/10/18 [Rx] Patient Handouts: Viral Gastroenteritis, Adult, Dehydration, Adult Forms: ED Department Discharge Referrals: PCP,None [Primary Care Provider] - - Discharge Summary/Plan Comment DC Time >30 min.: No - Patient Data Vitals - Most Recent: Last Vital Signs Temp 98.2 F 02/10/18 03:55 Pulse 76 02/10/18 03:55 Resp 18 02/10/18 03:55 BP 103/63 02/10/18 03:55 Pulse Ox 97 02/10/18 03:55 Weight - Most Recent: 161 lb I&O - Last 24 hours: Intake & Output 02/09/18 02/10/18 02/10/18 22:59 06:59 14:59 Intake Total 0737 912 Output Total 6123 7820 Balance -491 -450 Lab Results - Last 24 hrs: Laboratory Results - last 24 hr 18 02/09/18 Range/Units 16:08 16:08 WBC 7.9 (4.5-12.0) X10-3/uL RBC 3.94 (3.23-5.20) x10(6)uL Hgb 12.3 (11.5-15.5) g/dL Hct 36.5 (30.0-51.3) % MCV 92.6 (80-96) fL MCH 31.1 (27.7-33.6) pg MCHC 33.6 (32.2-35.4) g/dL RDW 12.3 (11.5-15.5) % Plt Count 182 (125-369) X10(3)uL MPV 9.1 (7.4-10.4) fL Neut % (Auto) 78.3 (46-82) % Lymph % (Auto) 16.6 (13-37) % [place] % (Auto) 3.9 L (4-12) % Eos % (Auto) 1 (1.0-5.0) % Baso % (Auto) 0 (0-2) % Neut # (Auto) 6.2 (1.6-8.3) # Lymph # (Auto) 1.3 (0.6-5.0) # [place] # (Auto) 0.3 (0.0-1.3) # Eos # (Auto) 0.1 (0.0-0.8) # Baso # (Auto) 0.0 (0.0-0.2) # Sodium 141 (135-145) mmol/L Potassium 3.8 (3.5-5.3) mmol/L Chloride 109 D (100-110) mmol/L Carbon Dioxide 21 (21-32) mmol/L BUN 8 (7-18) mg/dL Creatinine 0.8 (0.55-1.02) mg/dL Est Cr Clr Drug Dosing 74.67 mL/min Estimated GFR (MDRD) > 60 (>60) BUN/Creatinine Ratio 10.0 (9-20) Glucose 103 (80-116) mg/dL Calcium 7.5 L (8.6-10.2) mg/dL Total Bilirubin 0.3 (0.1-1.3) mg/dL AST 14 (5-25) IU/L ALT 21 (12-36) U/L Alkaline Phosphatase 62 (56-112) IU/L Total Protein 5.8 L (6.0-8.0) g/dL Albumin 2.7 L (3.5-5.2) g/dL Globulin 3.1 g/dL Albumin/Globulin Ratio 0.9 KATHIE Results - Last 24 hrs: Microbiology 02/09/18 03:03 Aerobic Blood Culture - Preliminary Blood - Venous - Lab Draw NO GROWTH AFTER 1 DAY Anaerobic Blood Culture - Preliminary NO GROWTH AFTER 1 DAY 02/09/18 02:55 Aerobic Blood Culture - Preliminary Blood - Venous NO GROWTH AFTER 1 DAY Anaerobic Blood Culture - Preliminary NO GROWTH AFTER 1 DAY 02/09/18 04:03 Clostridium difficile Toxin A & B - Final Stool / Feces Positive C. Diff Toxin Med Orders - Current: Current Medications Ascorbic Acid (Vitamin C) 500 mg PO DAILY [facility] Cetirizine HCl (Zyrtec) 10 mg PO BEDTIME [facility] Last Admin: 02/09/18 21:16 Dose: 10 mg Cholecalciferol (Vitamin D3) 3,000 units PO DAILY [facility] Fish Oil (Fish Oil) 1 gm PO DAILY [facility] Sodium Chloride (Normal Saline) 1,000 mls @ 75 mls/hr IV ASDIRECTED [facility] Last Admin: 02/10/18 06:13 Dose: 75 mls/hr Ketorolac Tromethamine (Toradol) 30 mg IVPUSH Q6H PRN PRN Reason: Pain Stop: 02/14/18 08:02 Lactobacillus Rhamnosus (Culturelle) 1 cap PO DAILY [facility] Multivitamins (Total B With C) 1 each PO DAILY [facility] Multivitamins/Minerals/Vitamin C (Tab-A-Manuel) 1 tab PO DAILY [facility] (Levonorgestrel- Ethin Estradiol [ Falmina-28 Tablet])* Pt Own Med* 1 tab PO BEDTIME JOHN Last Admin: 02/09/18 21:15 Dose: 1 tab Ondansetron HCl (Zofran) 4 mg IVPUSH Q6H PRN PRN Reason: Nausea/Vomiting Ondansetron HCl (Zofran Odt) 4 mg PO Q8H PRN PRN Reason: NAUSEA Paroxetine HCl (Paxil Cr) 25 mg PO BEDTIME [facility] Last Admin: 02/09/18 21:15 Dose: 25 mg Lansoprazole 30mg Cr (Caps*Pt Own Med*) 1 each PO DAILY@1730 [facility] Last Admin: 02/09/18 21:15 Dose: 1 each Vancomycin 125 Mg (Capsules*Pt Own Med*) 1 each PO QID [facility] Last Admin: 02/09/18 21:16 Dose: 1 each Simvastatin (Zocor) 10 mg PO BEDTIME [facility] Last Admin: 02/09/18 21:15 Dose: 10 mg Sodium Chloride (Saline Flush) 10 ml FLUSH ASDIRECTED PRN PRN Reason: Keep Vein Open Discontinued Medications Diatrizoate Meglum/Diatrizoate Sod (Gastrografin 37%) 30 ml PO . DIRECTED [facility] Last Admin: 02/09/18 05:38 Dose: 30 ml Sodium Chloride (Normal Saline) 1,000 mls @ 999 mls/hr IV ASDIRECTED [facility] Last Admin: 02/09/18 01:00 Dose: 999 mls/hr Sodium Chloride (Normal Saline) 1,000 mls @ 999 mls/hr IV ASDIRECTED [facility] Last Admin: 02/09/18 02:02 Dose: 999 mls/hr Dextrose/Lactated Ringer's (Dextrose 5%-Lactated Ringers) 1,000 mls @ 75 mls/ hr IV ASDIRECTED [facility] Last Admin: 02/09/18 03:06 Dose: 75 mls/hr Promethazine HCl 50 mg/ Sodium (Chloride) 52 mls @ 200 mls/hr IV ONETIME ONE Stop: 02/09/18 03:57 Last Admin: 02/09/18 03:53 Dose: 200 mls/hr Dextrose/Lactated Ringer's (Dextrose 5%-Lactated Ringers) 2,000 mls @ 500 mls/ hr IV ASDIRECTED [facility] Piperacillin Sod/Tazobactam (Sod 3.375 gm/ Sodium Chloride) 50 mls @ 100 mls/ hr IV Q6H [facility] Last Admin: 02/09/18 10:27 Dose: Not Given Vancomycin HCl 1,000 mg/ (Sodium Chloride) 250 mls @ 167 mls/hr IV Q12H [facility] Last Admin: 02/09/18 05:22 Dose: 167 mls/hr Sodium Chloride (Normal Saline) 2,000 mls @ 500 mls/hr IV ASDIRECTED [facility] Last Admin: 02/09/18 03:50 Dose: 500 mls/hr Sodium Chloride (Normal Saline) 1,000 mls @ 150 mls/hr IV ASDIRECTED [facility] Last Admin: 02/09/18 18:36 Dose: 150 mls/hr Metronidazole 500 mg/ Premix 100 mls @ 100 mls/hr IV Q8H [facility] Last Admin: 02/09/18 10:12 Dose: 100 mls/hr Iopamidol (Isovue-370 (76%)) 75 ml IV ONETIME ONE Stop: 02/09/18 03:55 Last Admin: 02/09/18 04:06 Dose: Not Given Ketorolac Tromethamine (Toradol) 30 mg IVPUSH ONETIME ONE Stop: 02/09/18 00:59 Last Admin: 02/09/18 01:14 Dose: 30 mg Ondansetron HCl (Zofran) 8 mg IVPUSH ONETIME ONE Stop: 02/09/18 00:51 Last Admin: 02/09/18 01:09 Dose: 8 mg Vancomycin HCl (Vancomycin) Confirm Administered Dose 1,000 mg .ROUTE .STK-MED ONE Stop: 02/09/18 05:11 Last Admin: 02/09/18 05:27 Dose: Not Given Vancomycin HCl (Vancocin 125 Mg/5 Ml Soln) 125 mg PO QID [facility] Last Admin: 02/10/18 07:35 Dose: Not Given
[2018-02-10 08:36] VITALS: BP 117/70
[2018-02-10] MEDS: VANCOMYCIN 125 MG PO SCH (08:50)
[2018-02-10] MEDS ORDERED: Lactobacillus Rhamnosus GG (Probiotic) Cap PO SCH (09:00)
[2018-02-10] MEDS ORDERED: Vitamin B Complex with Vitamin C Tab PO SCH (09:00)
[2018-02-10] MEDS ORDERED: Ascorbic Acid 500 MG Tab PO SCH (09:00)
[2018-02-10] MEDS ORDERED: Multivitamin Tab PO SCH (09:00)
[2018-02-10] MEDS ORDERED: Cholecalciferol (Vitamin D3) 1,000 Unit Tab PO SCH (09:00)
[2018-02-10] MEDS ORDERED: Fish Oil/Omega-3 Fatty Acids 1 Gm Cap PO SCH (09:00)
[2018-02-10] MEDS ORDERED: Pantoprazole 40 MG Tab.CR PO SCH (17:30)
== END 2018-02-10 09:35 | disposition home or self-care (01) | DRG 373 ==
LOC: FB.ED 00:35 → FB.ICU 04:04 → FB.MS 17:08
PROVIDERS: ADMIT Family Medicine; ATTEND Family Medicine
DX: A04.72 Enterocolitis due to Clostridium difficile, not specified as recurrent (principal); E86.0 Dehydration; F32.9 Major depressive disorder, single episode, unspecified; F41.9 Anxiety disorder, unspecified; E78.00 Pure hypercholesterolemia, unspecified; N80.9 Endometriosis, unspecified; Z87.891 Personal history of nicotine dependence; Z88.8 Allergy status to other drugs, medicaments and biological substances
CPT/HCPCS: 36415; 51702; 71045; 74176; 80048; 80053; 81001; 82150; 83605; 85025; 87040; 87324; 96361; 96365; 96375; 99285; A9270-GY; J1885; J2405; J2543; J2550; J3370; J7040; J7042; J7050; Q9963

== ENCOUNTER 2020-10-09 23:31 | Emergency (ER) | payer BC, OTHER ==
[2020-10-10] MEDS ORDERED: Ketorolac 30 MG/ML SDV IVPUSH ONE (00:38)
[2020-10-10] MEDS ORDERED: Acetaminophen 500 MG Tab PO ONE (00:38)
[2020-10-10] MEDS ORDERED: Sodium Chloride 0.9% 10 ML Syringe FLUSH PRN (00:44)
[2020-10-10] MEDS ORDERED: Codeine/guaiFENesin 10-100 MG/5 ML Syrup 5 ML Cup PO ONE (01:14)
--- NOTE | 2020-10-10 01:20 | EDM.PDOC ---
ED HPI GENERAL MEDICAL PROBLEM - General Chief Complaint: Respiratory Problem Time Seen by Provider: 10/09/20 23:35 Source of Information: Reports: Patient History Limitations: Reports: No Limitations - History of Present Illness INITIAL COMMENTS - FREE TEXT/NARRATIVE: Patient presented to the ED because of cough/cold,chills. She also c/o N/V/D but nothing more than usual. She also has pleuritic chest pain which is worse after coughing. Midsternal chest Pain Score (Numeric/FACES): 2 - Related Data Allergies Allergy/AdvReac Type Severity Reaction Status Date / Time codeine Allergy Rash Verified 10/10/20 00:01 venlafaxine HCl Allergy Disorientat Verified 10/10/20 00:01 [From Effexor] ion Home Meds: Home Meds Simvastatin 10 mg PO BEDTIME 09/06/13 [History] Cetirizine [ZyrTEC] 10 mg PO BEDTIME 02/09/18 [History] Lansoprazole [Prevacid] 30 mg PO BEDTIME 02/09/18 [History] Fluticasone Propionate [Flonase] 16 gm NS DAILY PRN 10/02/18 [History] Ondansetron [Zofran Odt] 8 mg PO Q6H PRN #15 tab.rapdis 10/13/18 [Rx] Codeine/guaiFENesin [Robitussin AC] 10 ml PO Q4H #1 bottle 10/10/20 [Rx] PARoxetine [Paxil] 30 mg PO BEDTIME 10/10/20 [History] Past Medical History Cardiovascular History: Reports: High Cholesterol, Hypertension, Other (See Be low) Other Cardiovascular History: borderline HTN Respiratory History: Reports: Asthma Gastrointestinal History: Reports: GERD, Irritable Bowel Syndrome Other Gastrointestinal History: Recurrent C diff Genitourinary History: Reports: None F[employer]ER History: Reports: Endometriosis, , Other (See Below) Other [employer]ER History: surgery for endometriosis, Musculoskeletal History: Reports: Fracture Other Musculoskeletal History: hx fx L 5th digit fx, Neurological History: Reports: Concussion Psychiatric History: Reports: Anxiety, Depression Endocrine/Metabolic History: Reports: Hypothyroidism, Obesity/BMI 30+ Dermatologic History: Reports: Eczema, Psoriasis - Infectious Disease History Infectious Disease History: Reports: C-Difficile, Chicken Pox - Past Surgical History Head Surgeries/Procedures: Reports: None HEENT Surgical History: Reports: Oral Surgery GI Surgical History: Reports: Colonoscopy, EGD, Other (See Below) Other GI Surgeries/Procedures: has had fecal transplant x 2 for c-diff Female Surgical History: Reports: Hysterectomy, Other (See Below) Other Female Surgeries/Procedures: partial hyst Musculoskeletal Surgical History: Reports: None Social & Family History - Family History Family Medical History: No Pertinent Family History - Tobacco Use Tobacco Use Status *Q: Current Every Day Tobacco User Years of Tobacco use: 32 Packs/Tins Daily: 0.5 - Caffeine Use Caffeine Use: Reports: Coffee, Tea Other Caffeine Use: 3 CUPS DAILY - Recreational Drug Use Recreational Drug Use: No ED ROS GENERAL - Review of Systems Review Of Systems: See Below Constitutional: Reports: No Symptoms HEENT: Reports: No Symptoms Respiratory: Reports: No Symptoms Cardiovascular: Reports: No Symptoms Endocrine: Reports: No Symptoms GI/Abdominal: Reports: Abdominal Pain, Nausea, Vomiting : Reports: No Symptoms, Discharge Musculoskeletal: Reports: No Symptoms, Neck Pain, Shoulder Pain Skin: Reports: No Symptoms Neurological: Reports: No Symptoms Psychiatric: Reports: No Symptoms Hematologic/Lymphatic: Reports: No Symptoms ED EXAM, GENERAL - Physical Exam Exam: See Below Exam Limited By: No Limitations General Appearance: Alert, No Apparent Distress Eye Exam: Bilateral Eye: PERRL Nose: Normal Inspection, Normal Mucosa Throat/Mouth: Normal Inspection, Normal Lips Head: Atraumatic, Normocephalic Neck: Normal Inspection, Supple, Non-Tender, Full Range of Motion Respiratory/Chest: No Respiratory Distress, Lungs Clear, Normal Breath Sounds, No Accessory Muscle Use, Chest Non-Tender Cardiovascular: Normal Peripheral Pulses, Regular Rate, Rhythm, No Edema, No Gallop, No JVD, No Murmur, No Rub GI/Abdominal: Normal Bowel Sounds, Soft, Non-Tender, No Organomegaly Back Exam: Normal Inspection, Full Range of Motion Extremities: Normal Inspection, Normal Range of Motion Course - Vital Signs Text/Narrative:: Labs/EKG/CXR was discussed with the patient Toradol 30 mg Robistussin AC 10 ml PO x1 Last Recorded V/S: Last Vital Signs Temp 37.0 C 10/09/20 23:31 Pulse 102 H 10/09/20 23:31 Resp 24 H 10/09/20 23:31 BP 158/115 H 10/09/20 23:31 Pulse Ox 97 10/09/20 23:31 - Orders/Labs/Meds Orders: Active Orders 24 hr Category Date Time Status EKG Documentation Completion [RC] ASDIRECTED Care 10/10/20 00:25 Active Chest 1V Frontal [CR] Stat Exams 10/10/20 00:23 Taken Codeine/guaiFENesin [Robitussin AC] Med 10/10/20 01:14 Once 10 ml PO ONETIME ONE Sodium Chloride 0.9% [Saline Flush] Med 10/10/20 00:44 Active 10 ml FLUSH ASDIRECTED PRN Isolation [COMM] Routine Oth 10/10/20 00:25 Ordered Peripheral IV Insertion Adult [OM.PC] Routine Oth 10/10/20 00:44 Ordered EKG 12 Lead [EK] Routine Ther 10/10/20 00:23 Ordered Medication Orders Sodium Chloride (Saline Flush) 10 ml FLUSH ASDIRECTED PRN PRN Reason: Keep Vein Open Labs: Laboratory Tests 10/10/20 10/10/20 10/10/20 Range/Units 00:01 00:01 00:01 WBC 12.1 H (3.0-10.3) x10-3/uL RBC 4.85 (3.60-5.20) x10(6)uL Hgb 14.6 (11.4-15.5) g/dL Hct 44.2 (34.2-48.2) % MCV 91.1 (76.7-100.5) fL MCH 30.1 (23.9-33.9) pg MCHC 33.0 (31.9-34.8) g/dL RDW 12.9 (12.3-16.5) % Plt Count 285 (151-488) x10(3)uL MPV 9.4 (7.1-12.4) fL Neut % (Auto) 44.7 (30.8-76.2) % Lymph % (Auto) 44.8 (18.4-52.1) % [place] % (Auto) 7.4 (4.4-15.7) % Eos % (Auto) 1.9 (0.6-8.1) % Baso % (Auto) 1.2 (0.2-1.5) % Neut # (Auto) 5.4 (1.5-6.3) x10-3/uL Lymph # (Auto) 5.4 H (1.0-4.4) x10-3/uL [place] # (Auto) 0.9 (0.3-1.0) x10-3/uL Eos # (Auto) 0.2 (0.0-0.8) x10-3/uL Baso # (Auto) 0.1 (0.0-0.1) x10-3/uL Sodium 138 (135-145) mmol/L Potassium 3.8 (3.5-5.3) mmol/L Chloride 101 (100-110) mmol/L Carbon Dioxide 24 (21-32) mmol/L BUN 11 (7-18) mg/dL Creatinine 0.8 (0.55-1.02) mg/dL Est Cr Clr Drug Dosing 72.45 mL/min Estimated GFR (MDRD) > 60 (>60) BUN/Creatinine Ratio 13.8 (9-20) Glucose 104 (80-116) mg/dL Calcium 9.1 (8.6-10.2) mg/dL Total Bilirubin 0.1 (0.1-1.3) mg/dL AST 17 D (5-25) IU/L ALT 30 D (12-36) U/L Alkaline Phosphatase 102 (56-112) IU/L Troponin I 5.5 (4.0-60.3) pg/mL Total Protein 7.5 (6.0-8.0) g/dL Albumin 3.9 (3.5-5.2) g/dL Globulin 3.6 g/dL Albumin/Globulin Ratio 1.1 SARS-CoV-2 RNA (ABRAHAM) (NEGATIVE) 10/10/20 Range/Units 00:01 WBC (3.0-10.3) x10-3/uL RBC (3.60-5.20) x10(6)uL Hgb (11.4-15.5) g/dL Hct (34.2-48.2) % MCV (76.7-100.5) fL MCH (23.9-33.9) pg MCHC (31.9-34.8) g/dL RDW (12.3-16.5) % Plt Count (151-488) x10(3)uL MPV (7.1-12.4) fL Neut % (Auto) (30.8-76.2) % Lymph % (Auto) (18.4-52.1) % [place] % (Auto) (4.4-15.7) % Eos % (Auto) (0.6-8.1) % Baso % (Auto) (0.2-1.5) % Neut # (Auto) (1.5-6.3) x10-3/uL Lymph # (Auto) (1.0-4.4) x10-3/uL [place] # (Auto) (0.3-1.0) x10-3/uL Eos # (Auto) (0.0-0.8) x10-3/uL Baso # (Auto) (0.0-0.1) x10-3/uL Sodium (135-145) mmol/L Potassium (3.5-5.3) mmol/L Chloride (100-110) mmol/L Carbon Dioxide (21-32) mmol/L BUN (7-18) mg/dL Creatinine (0.55-1.02) mg/dL Est Cr Clr Drug Dosing mL/min Estimated GFR (MDRD) (>60) BUN/Creatinine Ratio (9-20) Glucose (80-116) mg/dL Calcium (8.6-10.2) mg/dL Total Bilirubin (0.1-1.3) mg/dL AST (5-25) IU/L ALT (12-36) U/L Alkaline Phosphatase (56-112) IU/L Troponin I (4.0-60.3) pg/mL Total Protein (6.0-8.0) g/dL Albumin (3.5-5.2) g/dL Globulin g/dL Albumin/Globulin Ratio SARS-CoV-2 RNA (ABRAHAM) Negative (NEGATIVE) Meds: Medications Generic Name Dose Route Start Last Admin Trade Name Freq PRN Reason Stop Dose Admin Sodium Chloride 10 ml 10/10/20 00:44 Saline Flush FLUSH ASDIRECTED PRN Keep Vein Open Discontinued Medications Generic Name Dose Route Start Last Admin Trade Name Freq PRN Reason Stop Dose Admin Acetaminophen 1,000 mg 10/10/20 00:38 10/10/20 00:46 Tylenol Extra Strength PO 10/10/20 00:39 1,000 mg ONETIME ONE Administration Ketorolac Tromethamine 30 mg 10/10/20 00:38 10/10/20 00:46 Toradol IVPUSH 10/10/20 00:39 30 mg ONETIME ONE Administration Departure - Departure Time of Disposition: 01:20 Disposition: Home, Self-Care 01 Condition: Good Clinical Impression: Acute viral syndrome - Discharge Information Prescriptions: Codeine/guaiFENesin [Robitussin AC] 10 ml PO Q4H #1 bottle Instructions: Viral Respiratory Infection, [id number] Referrals: PCP,None [Primary Care Provider] - Additional Instructions: Please read discharge instructions on Viral Syndrome Increase oral fluids Frequent hand washing Take ibuprofen 800 mg with tylenol 1000 mg every 8 hours as needed for your chest wall pain Robitussin AC take 10 ml every 4-6 hours ass needed for cough/cold Sepsis Event Note (ED) - Evaluation Sepsis Screening Result: Possible Sepsis Risk - Focused Exam Vital Signs: Vital Signs Temp Pulse Resp BP Pulse Ox 10/09/20 23:31 37.0 C 102 H 24 H 158/115 H 97 - My Orders Last 24 Hours: My Active Orders 10/10/20 00:23 Chest 1V Frontal [CR] Stat EKG 12 Lead [EK] Routine 10/10/20 00:25 EKG Documentation Completion [RC] ASDIRECTED Isolation [COMM] Routine 10/10/20 00:44 Sodium Chloride 0.9% [Saline Flush] 10 ml FLUSH ASDIRECTED PRN Peripheral IV Insertion Adult [OM.PC] Routine 10/10/20 01:14 Codeine/guaiFENesin [Robitussin AC] 10 ml PO ONETIME ONE - Assessment/Plan Last 24 Hours: My Active Orders 10/10/20 00:23 Chest 1V Frontal [CR] Stat EKG 12 Lead [EK] Routine 10/10/20 00:25 EKG Documentation Completion [RC] ASDIRECTED Isolation [COMM] Routine 10/10/20 00:44 Sodium Chloride 0.9% [Saline Flush] 10 ml FLUSH ASDIRECTED PRN Peripheral IV Insertion Adult [OM.PC] Routine 10/10/20 01:14 Codeine/guaiFENesin [Robitussin AC] 10 ml PO ONETIME ONE
[2020-10-10 01:53] VITALS: BP 126/90; PULSE 70
--- NOTE | 2020-10-10 10:33 | CR ---
INDICATION: Cough, dyspnea. CHEST ONE VIEW: AP upright portable view of the chest was obtained 10/10/20 and compared with 02/09/18. No significant interval change of definite acute process was identified. Slightly heavy markings at the lung bases are noted which make it difficult to entirely exclude minimal patchy bronchopneumonia, however. Additionally, bronchial wall cuffing is noted in the lower lung field which would be compatible with active peribronchial disease and should be correlated clinically. Heart and mediastinum were unremarkable as was the bony thorax. IMPRESSION: Heavy markings at the lung bases with bronchial wall cuffing. MTDD
== END 2020-10-10 01:37 | disposition home or self-care (01) ==
LOC: FB.ED 23:31
DX: B34.9 Viral infection, unspecified (principal); I10 Essential (primary) hypertension; E78.00 Pure hypercholesterolemia, unspecified; J45.909 Unspecified asthma, uncomplicated; K21.9 Gastro-esophageal reflux disease without esophagitis; F32.9 Major depressive disorder, single episode, unspecified; F41.9 Anxiety disorder, unspecified; F17.210 Nicotine dependence, cigarettes, uncomplicated; E66.9 Obesity, unspecified; Z68.31 Body mass index [BMI] 31.0-31.9, adult; Z88.5 Allergy status to narcotic agent; Z88.8 Allergy status to other drugs, medicaments and biological substances; Z79.899 Other long term (current) drug therapy; Z20.828 Contact with and (suspected) exposure to other viral communicable diseases
CPT/HCPCS: 36415; 71045; 80053; 84484; 85025; 93005; 96374; 99284-25; A9270-GY; J1885; U0002